=== PATIENT | female | born 1970 | race Caucasian/White ===

== ENCOUNTER 2018-02-06 21:07 | Emergency (ER) | payer OTHER ==
[~2018-02-06] VITALS: Ht 162.6 cm; Wt 78.6 kg
[2018-02-06 21:09] VITALS: TEMP 36.8; Ht 162.6 cm; Wt 78.6 kg
[2018-02-06] MEDS ORDERED: SODIUM CHLORIDE 0.9% 1000ML 1,000 ML IV STA (21:42)
[2018-02-06 22:12] VITALS: O2SAT 96
[2018-02-06] MEDS ORDERED: MELATAB2 PO (22:14)
[2018-02-06] MEDS ORDERED: ELVI1TAB6 PO (22:14)
[2018-02-06 22:18] LABS: BASO % 0.8 %; BASO ABS # 0.06 K/uL (0-0.2); EOS % 1.1 %; EOS ABS # 0.08 K/uL (0-0.5); HEMATOCRIT 39.2 % (37-47); HEMOGLOBIN 12.9 g/dL (12.0-16.0); IG# 0.03 K/uL (0.00-0.02); LYMPH % 26.5 %; LYMPH ABS # 1.92 K/uL (1.2-3.4); MEAN CELL VOLUME 100.5 fL (80-100); MEAN CORPUSCULAR HEMOGLOBIN 33.1 pg (25-34); MEAN CORPUSCULAR HGB CONC 32.9 g/dl (32-36); MEAN PLATELET VOLUME 9.5 fL (7.4-10.4); MONO % 8.7 %; MONO ABS # 0.63 K/uL (0.11-0.59); NEUT % 62.5 %; NEUT ABS # 4.53 K/uL (1.4-6.5); PLATELET COUNT 411 K/uL (130-400); RED CELL DISTRIBUTION WIDTH CV 12.8 % (11.5-14.5); RED CELL DISTRIBUTION WIDTH SD 46.9 fL (36.4-46.3); WHITE BLOOD COUNT 7.25 K/uL (4.8-10.8)
--- NOTE | 2018-02-06 22:33 | DIAGNOSTIC IMAGING REPORT ---
TWO VIEW CHEST CLINICAL HISTORY: Dyspnea. Reported history of HIV. FINDINGS: PA and lateral chest radiographs are obtained. No prior studies are available for comparison at the time of dictation. The cardiomediastinal silhouette is unremarkable. The lungs and pleural spaces are clear. There is no pneumothorax. The bony thorax appears intact. IMPRESSION: No active disease in the chest. Electronically signed by: Ramy Herrera M.D. 02/06/2018 10:32 PM Dictated Date/Time: 02/06/2018 10:31 PM
[2018-02-06 22:45] LABS: ALBUMIN 3.3 gm/dl (3.4-5.0); ALKALINE PHOSPHATASE 84 U/L (45-117); ALT/SGPT 24 U/L (12-78); AST/SGOT 16 U/L (15-37); BLOOD UREA NITROGEN 22 mg/dl (7-18); CALCIUM 8.7 mg/dl (8.5-10.1); CARBON DIOXIDE 24 mmol/L (21-32); CREATININE 1.04 mg/dl (0.60-1.20); GLUCOSE 99 mg/dl (70-99); POTASSIUM 3.5 mmol/L (3.5-5.1); SODIUM 140 mmol/L (136-145); TOTAL PROTEIN 6.9 gm/dl (6.4-8.2)
[2018-02-06] MEDS ORDERED: OPTIRAY 320 IV PRN (23:00)
--- NOTE | 2018-02-06 23:27 | DIAGNOSTIC IMAGING REPORT ---
ULTRASOUND KIDNEYS AND BLADDER CLINICAL HISTORY: Peripheral edema. COMPARISON STUDY: No priors. TECHNIQUE: Real-time, grayscale, and color flow sonography of the kidneys and bladder is performed. Images are reviewed in the transverse and longitudinal planes. FINDINGS: Kidneys: The kidneys are normal in size and echotexture. The right kidney measures 9.6 cm in length and the left kidney measures 9.8 cm in length. There is no hydronephrosis. No shadowing renal calculi are identified. There is no sonographic evidence of contour deforming renal mass lesion. No perinephric fluid is identified. Bladder: The bladder is normal in appearance. Bilateral ureteral jets were seen. IMPRESSION: Unremarkable sonographic assessment of the kidneys and bladder. Electronically signed by: Ramy Herrera M.D. 02/06/2018 11:26 PM Dictated Date/Time: 02/06/2018 11:25 PM
[2018-02-07 02:00] VITALS: BP 134/72; PULSE 78; O2SAT 98
--- NOTE | 2018-02-07 04:10 | EMERGENCY ROOM VISIT NOTE ---
History First contact with patient: 21:26 Chief Complaint: SWELLING TO EXTREMITY Stated Complaint: VERY SWOLLEN FEET AND HANDS, PAINFUL History of Present Illness The patient is a 47 year old female who presents to the Emergency Room with complaints of dyspnea for the past 2 months with swelling to her hands and feet for the past 5 days who was traveling from [facility] to [place] to visit family here. Patient has been doing a lot more driving. She does smoke. She also complains of a 45 pound weight gain over the past few months. Patient saw her family care doctor once for this with no clear etiology for her weight gain. Patient is HIV positive and is compliant with her medication regimen for the past 20 years. She states her CD4 count is in the 400s. She states her viral load is undetectable. Patient denies chest pain, fevers, night sweats, abdominal pain, nausea, vomiting, diarrhea, headache, flulike illness, Coca- Cola colored urine, kidney problems, gas in the urine, discolored urine, localized weakness. She is tolerating p.o. fluids and food. Review of Systems An 10 system review of systems was completed with positives and pertinent negatives listed in the HPI. Past Medical/Surgical History HIV, hysterectomy, colon resection Social History Smoking Status: Current Every Day Smoker Smokeless Tobacco Use: No Alcohol Use: occasionally Drug Use: none Marital Status: in relationship Current/Historical Medications Scheduled Uqtiraodjaxt-Mstsatipsx-Ioutsi (Genvoya [phone] mg), 1 TAB PO DAILY Scheduled PRN Melatonin (Melatonin Maximum Strengt), 5 MG PO HS PRN for Sleep Physical Exam Vital Signs Date Time Temp Pulse Resp B/P (MAP) Pulse Ox O2 Delivery O2 Flow Rate FiO2 02/07/18 02:00 78 20 134/72 98 02/06/18 23:47 74 18 106/64 97 Room Air 02/06/18 22:12 96 02/06/18 22:12 96 Room Air 02/06/18 22:09 86 109/93 98 119/62 99 110/80 02/06/18 21:09 36.8 102 20 120/79 97 Room Air Physical Exam VITALS: Vitals are noted on the nurse's note and reviewed by myself. Vital signs stable. GENERAL: Pleasant female, in no acute distress, nondiaphoretic, well-developed well-nourished. SKIN: The skin was without rashes, erythema, edema, or bruising. There is no tenting of the skin. Capillary reflex less than 2 seconds. HEAD: Normocephalic atraumatic. EARS: External auditory canals clear, tympanic membranes pearly gleason without erythema or effusion bilaterally. EYES: Pupils equal round and reactive to light and accommodation. Conjunctivae without injection, sclerae without icterus. Extraocular movements intact. NOSE: Patent, turbinates without inflammation or discharge. MOUTH: Mucous membranes moist. Pharynx without erythema or exudate. Uvula midline. Airway patent. Tongue does not deviate. NECK: Supple without nuchal rigidity. No lymphadenopathy. No thyromegaly. Cervical spine is nontender. No JVD. HEART: Regular rate and rhythm without murmurs gallops or rubs. LUNGS: Clear to auscultation bilaterally without wheezes, rales or rhonchi. No retractions or accessory muscle use. ABDOMEN: Positive bowel sounds x 4. Normal tympanic percussion. Soft, nontender, without masses or organomegaly. Long sign negative. No guarding or rebound tenderness. No CVA tenderness MUSCULOSKELETAL: No muscle atrophy, erythema, noted. Trace pedal edema bilaterally. NEURO: Patient was alert and oriented to person place and time. Normal sensation to light and sharp touch. No focal neurological deficits. Medical Decision & Procedures Laboratory Results 02/06/18 22:03 Red Blood Count 3.90, Mean Corpuscular Volume 100.5, Mean Corpuscular Hemoglobin 33.1, Mean Corpuscular Hemoglobin Concent 32.9, Mean Platelet Volume 9.5, Neutrophils (%) (Auto) 62.5, Lymphocytes (%) (Auto) 26.5, Monocytes (%) ( Auto) 8.7, Eosinophils (%) (Auto) 1.1, Basophils (%) (Auto) 0.8, Neutrophils # ( Auto) 4.53, Lymphocytes # (Auto) 1.92, Monocytes # (Auto) 0.63, Eosinophils # ( Auto) 0.08, Basophils # (Auto) 0.06 02/06/18 22:03 Test 02/06/18 01:00 02/06/18 22:03 Urine Color YELLOW Urine Appearance CLEAR (CLEAR) Urine pH 7.0 (4.5-7.5) Urine Specific [place] > 1.045 (1.000-1.030) Urine Protein NEG (NEG) Urine Glucose (UA) NEG (NEG) Urine Ketones NEG (NEG) Urine Occult Blood TRACE (NEG) Urine Nitrite NEG (NEG) Urine Bilirubin NEG (NEG) Urine Urobilinogen NEG (NEG) Urine Leukocyte Esterase NEG (NEG) Urine WBC (Auto) 5-10 /hpf (0-5) Urine RBC (Auto) 0-4 /hpf (0-4) Urine Hyaline Casts (Auto) 1-5 /lpf (0-5) Urine Epithelial Cells (Auto) >30 /lpf (0-5) Urine Bacteria (Auto) NEG (NEG) Urine Osmolality 659 mOms/kg (500-800) White Blood Count 7.25 K/uL (4.8-10.8) Red Blood Count 3.90 M/uL (4.2-5.4) Hemoglobin 12.9 g/dL (12.0-16.0) Hematocrit 39.2 % (37-47) Mean Corpuscular Volume 100.5 fL (80-100) Mean Corpuscular Hemoglobin 33.1 pg (25-34) Mean Corpuscular Hemoglobin Concent 32.9 g/dl (32-36) Platelet Count 411 K/uL (130-400) Mean Platelet Volume 9.5 fL (7.4-10.4) Neutrophils (%) (Auto) 62.5 % Lymphocytes (%) (Auto) 26.5 % Monocytes (%) (Auto) 8.7 % Eosinophils (%) (Auto) 1.1 % Basophils (%) (Auto) 0.8 % Neutrophils # (Auto) 4.53 K/uL (1.4-6.5) Lymphocytes # (Auto) 1.92 K/uL (1.2-3.4) Monocytes # (Auto) 0.63 K/uL (0.11-0.59) Eosinophils # (Auto) 0.08 K/uL (0-0.5) Basophils # (Auto) 0.06 K/uL (0-0.2) RDW Standard Deviation 46.9 fL (36.4-46.3) RDW Coefficient of Variation 12.8 % (11.5-14.5) Immature Granulocyte % (Auto) 0.4 % Immature Granulocyte # (Auto) 0.03 K/uL (0.00-0.02) Erythrocyte Sedimentation Rate 24 mm/hr (0-21) D-Dimer 540 ug/L FEU (0-500) Anion Gap 9.0 mmol/L (3-11) Est Creatinine Clear Calc Drug Dose 67.9 ml/min Estimated GFR () 74.1 Estimated GFR (Non- 63.9 BUN/Creatinine Ratio 20.7 (10-20) Osmolality 295 mOsm/kg (280-300) Calcium Level 8.7 mg/dl (8.5-10.1) Magnesium Level 2.3 mg/dl (1.8-2.4) Total Bilirubin < 0.1 mg/dl (0.2-1) Direct Bilirubin < 0.1 mg/dl (0-0.2) Aspartate Amino Transf (AST/SGOT) 16 U/L (15-37) Alanine Aminotransferase (ALT/SGPT) 24 U/L (12-78) Alkaline Phosphatase 84 U/L (45-117) Total Creatine Kinase 62 U/L (26-192) Troponin I < 0.015 ng/ml (0-0.045) C-Reactive Protein 0.42 mg/dl (0-0.29) Total Protein 6.9 gm/dl (6.4-8.2) Albumin 3.3 gm/dl (3.4-5.0) Thyroid Stimulating Hormone (TSH) 0.646 uIu/ml (0.300-4.500) Medications Administered Medications (Trade) Dose Ordered Sig/Lenka Route Start Time Stop Time Status Last Admin Dose Admin Sodium Chloride 1,000 ml @ 999 mls/hr Q1H1M STAT IV 02/06/18 21:42 02/06/18 22:42 DC 02/06/18 21:42 999 MLS/HR ED Course Prior records/ancillary studies reviewed. Triage Nursing notes reviewed. The patient's history was concerning for peripheral edema, weight gain and respiratory difficulties. Differential diagnosis: Etiologies such as kidney problem, thyroid problem, autoimmune, infections, reactive airway disease, pneumonia, pneumothorax, COPD, CHF, cardiac ischemia, pulmonary embolism, musculoskeletal, gastrointestinal, as well as others were entertained. Physical examination: As above. ER treatment provided: IV fluids On reassessment the patient felt better. Diagnostic interpretation by me: The electrocardiogram was negative for acute ischemic or pathologic change. Normal sinus, normal intervals, no acute ST-T wave changes. Impression normal sinus rhythm interpreted by myself. No old EKG. I think arrhythmia is unlikely. EKG shows normal sinus rhythm with no interval abnormalities such as QT prolongation or WPW. There are no findings to suggest Brugada syndrome. Cardiac monitoring in the emergency department reveals no tachycardic or bradycardic dysrhythmia. Hypertrophic cardiomyopathy was considered but there are no clear historical elements pointing toward this. EKG is not suggestive. The QRS voltage is not extremely large and there are no suggestive Q waves. The labs revealed euthyroid. Negative troponin. Elevated d-dimer. Imaging studies: Chest x-ray as above. TWO VIEW CHEST CLINICAL HISTORY: Dyspnea. Reported history of HIV. FINDINGS: PA and lateral chest radiographs are obtained. No prior studies are available for comparison at the time of dictation. The cardiomediastinal silhouette is unremarkable. The lungs and pleural spaces are clear. There is no pneumothorax. The bony thorax appears intact. IMPRESSION: No active disease in the chest. ULTRASOUND KIDNEYS AND BLADDER CLINICAL HISTORY: Peripheral edema. COMPARISON STUDY: No priors. TECHNIQUE: Real-time, grayscale, and color flow sonography of the kidneys and bladder is performed. Images are reviewed in the transverse and longitudinal planes. FINDINGS: Kidneys: The kidneys are normal in size and echotexture. The right kidney measures 9.6 cm in length and the left kidney measures 9.8 cm in length. There is no hydronephrosis. No shadowing renal calculi are identified. There is no sonographic evidence of contour deforming renal mass lesion. No perinephric fluid is identified. Bladder: The bladder is normal in appearance. Bilateral ureteral jets were seen. IMPRESSION: Unremarkable sonographic assessment of the kidneys and bladder. Electronically signed by: Ramy Herrera M.D. CTA CHEST: No pulmonary embolus. No effusion or consolidation. 6 mm nodular opacity right lung base. Small hiatal hernia. Radiologist: Lela Trinidad M.D. Ultrasound was negative for DVT per stat radiology HEART SCORE: Hx: high/mod/low suspicion: 0 ECG: ST depression/nonspecific changes/normal: 0 Age: Greater than 65/45-64/less than 45: 1 Risk factors: (Hypertension, hyperlipidemia, diabetes, coronary disease, tobacco use, cocaine use): 2 Troponin: Greater than 2 times normal limits/1-2 times normal limits/normal: 0 Total: 3 Wells Score Symptoms of DVT 3pt: 0 Alternative diagnoses better explains illness 3pts: 0 Tachycardia greater than 100 1.5 pts 0 Immobilization greater than 3 days or surgery in the previous 4 weeks 1.5 pts: 0 Prior history of DVT or PE 1.5 pts: 0 Presence of hemoptysis 1pt: 0 Presence of malignancy 1pt: 0 (Score greater than 6 is high probability, score 2-6 moderate probability, score less than 2 low probability) Total: 0 The pulmonary embolism rule out criteria (PERC rule) Age <50 years 0 Heart rate <100 bpm 0 Oxyhemoglobin saturation =95% 0 No hemoptysis 0 No estrogen use 0 No prior DVT or PE 0 No unilateral leg swelling 0 No surgery/trauma requiring hospitalization within the prior four weeks 0 (0 low risk) Total: 0 This appears to be consistent with ongoing dyspnea with possible peripheral edema weight gain and pulmonary nodule with unclear etiology. Patient had no acute findings in the above workup. She does smoke. She is strongly encouraged to quit and to follow-up with her family care doctor for small lung nodule seen on CT imaging today. Patient was neurovascularly and neurologically intact. She was afebrile and nontoxic. She was informed she will need further outpatient workup for her ongoing symptoms. Patient is advised to return to the ER immediately for chest pain, difficulty breathing, worsening signs or symptoms or as needed. Patient's d-dimer is elevated so CT imaging was ordered. This is negative. DVT ultrasound was negative also. Heart score was low. PERC score is negative. By the evaluation outlined above emergent etiologies such as CHF, cardiac ischemia, pulmonary embolism, reactive airway disease, pneumonia, pneumothorax, musculoskeletal, serious bacterial infections, as well as others were deemed relatively unlikely. The pt informed about the findings as listed above. All questions were answered and pleased with the treatment. Return instructions were outlined and the patient was discharged in stable condition. Referral: The patient was referred back to their primary care physician for follow-up in 2 to 3 days for a recheck of the current condition. Case reviewed with my attending The chart was completed utilizing [employer]ream voice recognition software. Grammatical errors, random word insertions, pronoun errors, and incomplete sentences are an occassional consequence of this system due to software limitations, ambient noise, and hardware issues. Any formal questions or concerns about the content, text, or information contained within the body of this dictation should be directly addressed to the physician specimen preparation assistant for clarification. Medical Decision As above Medication Reconcilliation Current Medication List: was personally reviewed by me Blood Pressure Screening Patient's blood pressure: Normal blood pressure Impression Primary Impression: Peripheral edema Additional Impressions: Dyspnea Weight gain Departure Information Referrals No Doctor, Assigned (PCP) Patient Instructions My [facility] Health Problem Qualifiers
--- NOTE | 2018-02-07 07:02 | DIAGNOSTIC IMAGING REPORT ---
(CHEST FOR PE) ANGIO WITH CT DOSE: 404.38 mGy.cm HISTORY: Chest pain dyspnea TECHNIQUE: Multiaxial CT images of the chest were performed following the intravenous administration of contrast to evaluate the pulmonary arteries. Maximal intensity projection images were also obtained. A dose lowering technique was utilized adhering to the principles of ALARA. COMPARISON STUDY: None. FINDINGS: There is a normal caliber thoracic aorta with no evidence for dissection. There is no evidence for pulmonary embolus. No pleural effusions. No pneumothorax. The liver and spleen are unremarkable. No mediastinal or hilar lymphadenopathy. The central airways are patent. The lungs are clear. IMPRESSION: No evidence for pulmonary embolus. The lungs are clear. The above report was generated using voice recognition software. It may contain grammatical, syntax or spelling errors. Electronically signed by: Juan Huntley M.D. 02/07/2018 7:00 AM Dictated Date/Time: 02/07/2018 6:54 AM
--- NOTE | 2018-02-07 07:07 | DIAGNOSTIC IMAGING REPORT ---
VENOUS DOPPLER LWR EXT BILA HISTORY: Pain. Edema. leg swelling COMPARISON STUDY: None. FINDINGS: There is normal compressibility, flow, and augmentation within the bilateral lower extremity deep venous systems. IMPRESSION: No DVT within the right or left lower extremity. The above report was generated using voice recognition software. It may contain grammatical, syntax or spelling errors. Electronically signed by: Juan Huntley M.D. 02/07/2018 7:06 AM Dictated Date/Time: 02/07/2018 7:06 AM
== END 2018-02-07 02:02 | disposition home or self-care (01) ==
LOC: C.EDB 21:09 → C.EDC 02-07 02:02
DX: R60.9 Edema, unspecified (principal); R06.00 Dyspnea, unspecified; R63.5 Abnormal weight gain; F17.210 Nicotine dependence, cigarettes, uncomplicated; B20 Human immunodeficiency virus [HIV] disease; Z79.899 Other long term (current) drug therapy